=== PATIENT | female | born 1985 | race Caucasian/White ===

== ENCOUNTER 2017-04-09 11:26 | Inpatient (IN) | payer BC ==
[~2017-04-09] VITALS: Ht 157.5 cm; Wt 64.1 kg
[~2017-04-09 11:26] MED LIST: DHA PO; IRON159 MG PO; MOTRIN 600600 MG/TAB PO; PRENATAL VITAMI1 TAB PO; PRENATAL1 TA1 PO; SENOKOT S 50 MG1 TAB PO
[2017-06-07] VITALS (43 sets, daily range): BP systolic 109–150; BP diastolic 56–89; PULSE 56–92; TEMP 98.1–98.4
[2017-06-07 08:17] LABS: BASO % 0.5 % (0.0-2.0); EOS # 0.1 (0.0-0.7); EOS % 1.1 % (0-4.0); GRAN # 5.3 (1.4-6.5); LYMPH # 1.4 (1.2-3.4); LYMPH % 19.5 % (20.0-51.0); MEAN CELL VOLUME 93 fl (80.0-100.0); MEAN CORPUSCULAR HGB CONC 32 g/dl (33.0-37.0); MEAN PLATELET VOLUME 11.1 fl (7.4-10.4); MONO # 0.5 (0.1-0.6); MONO % 6.2 % (1.7-9.3); PLATELET COUNT 211 K/mm3 (130-400); RED BLOOD COUNT 3.88 M/mm3 (4.10-5.30); REDCELL DISTRIBUTION WIDTH-CV 12.7 % (11.5-14.5)
[2017-06-07 08:24] LABS: HEMATOCRIT 36.1 % (37.0-47.0); HEMOGLOBIN 11.6 g/dl (12.5-16.0); MEAN CORPUSCULAR HEMOGLOBIN 30 pg (27.0-31.0)
[2017-06-07] MEDS ORDERED: PERCOCET 325 MG1 TA2 PO (16:14)
[2017-06-07] MEDS ORDERED: MOTRIN 800800 MG/TAB PO (16:14)
[2017-06-08 01:15] VITALS: BP 103/71; PULSE 71; TEMP 98.1
[2017-06-08 04:50] VITALS: BP 105/81; PULSE 77; TEMP 98
[2017-06-08 07:30] VITALS: BP 109/70; PULSE 70; TEMP 98.5
== END 2017-06-08 17:30 | disposition home or self-care (01) | DRG 775 ==
LOC: OB 06-07 07:00 → LDR 06-07 07:00 → OB 06-07 19:45 → LDR 06-10 11:26
PROVIDERS: Obstetrics & Gynecology
PROC: 10E0XZZ Delivery of Products of Conception, External Approach (ICD-10-PCS; principal; 2017-06-07)
PROC: 3E033VJ Introduction of Other Hormone into Peripheral Vein, Percutaneous Approach (ICD-10-PCS; 2017-06-07)
DX: O36.0130 Maternal care for anti-D [Rh] antibodies, third trimester, not applicable or unspecified (principal); O69.81X0 Labor and delivery complicated by cord around neck, without compression, not applicable or unspecified; Z3A.39 39 weeks gestation of pregnancy; Z37.0 Single live birth
CPT/HCPCS: J2590; J7120